=== PATIENT | female | born 1980 | race Caucasian/White ===

== ENCOUNTER 2017-01-30 13:43 | Emergency (ER) | payer BC, OTHER ==
[~2017-01-30 13:43] MED LIST: BIOTIN5 MG PO; CYMBALTA60 PO; ESTROGEN; IMITREX50 PO; KLONO1 PO; LORTAB10 PO; MULTIVIT/MIN PO; NEUR300 PO; NORCO1 TAB PO; PR25 PO; TESTOSTERONE; VALTREX1 GM PO; ZANAFLEX2 MG PO; [UNRECOGNIZED DRUG - OTHER]
== END 2017-01-30 15:00 | disposition home or self-care (01) ==
LOC: ER 13:43
DX: G62.9 Polyneuropathy, unspecified (principal); Z91.040 Latex allergy status; Z88.8 Allergy status to other drugs, medicaments and biological substances; Z79.899 Other long term (current) drug therapy
CPT/HCPCS: 99283

== ENCOUNTER 2017-01-30 23:10 | Emergency (ER) | payer BC, OTHER | END 2017-01-31 00:01 | disposition home or self-care (01) | LOC: ER 23:10 | DX: M79.652 Pain in left thigh (principal); B00.9 Herpesviral infection, unspecified; Z88.8 Allergy status to other drugs, medicaments and biological substances; Z91.040 Latex allergy status; Z79.899 Other long term (current) drug therapy | CPT/HCPCS: 96372; 99284; A9270-GY; J1170 ==